=== PATIENT | male | born 1985 | race Caucasian/White ===

== ENCOUNTER 2024-05-02 18:08 | Emergency (ER) | payer SELFPAY ==
[~2024-05-02] VITALS: Ht 185.4 cm; Wt 72.7 kg
[2024-05-02 20:26] VITALS: PULSE 88; RESP 18; TEMP 98.6
[2024-05-02] MEDS ORDERED: IBUPROFEN800 MG PO (20:42)
[2024-05-02] MEDS ORDERED: METHOCARBAMOL750 MG PO (20:43)
[2024-05-02 22:18] VITALS: BP 126/81; TEMP 97.8; O2SAT 100
[2024-05-02] MEDS ORDERED: IOPAMIDOL 370 MG/ML 100 ML INFUS..BTL INJ ONE (23:45)
== END 2024-05-02 21:25 | disposition home or self-care (01) ==
LOC: FSED 18:13
DX: R10.31 Right lower quadrant pain (principal); S76.811A Strain of other specified muscles, fascia and tendons at thigh level, right thigh, initial encounter; N50.811 Right testicular pain; X50.0XXA Overexertion from strenuous movement or load, initial encounter; F17.210 Nicotine dependence, cigarettes, uncomplicated
CPT/HCPCS: 74177; 76870; 80048; 81003; 85025; 99284; Q9967